=== PATIENT | female | born 1985 | race Caucasian/White ===

== ENCOUNTER 2016-10-05 13:09 | Emergency (ER) | payer SELFPAY ==
[2016-10-05 13:52] VITALS: BP 119/77
--- NOTE | 2016-10-05 15:04 | UC ---
Lower Extremity/Ankle HPI - History of Current Complaint Chief Complaint: UCLowerExtremity Stated Complaint: BILATERAL FOOT PAIN Time Seen by Provider: 10/05/16 14:53 Hx Obtained From: Patient Hx Last Menstrual Period: 09/09/2016 ?: No Onset/Duration: Gradual Onset - got sores on heels now with red streaks heading out to the side., Lasting Weeks - 1, Worse Since - yesterday Severity Initially: Mild Severity Currently: Moderate Aggravating Factor(s): Nothing Alleviating Factor(s): Nothing Able to Bear Weight: Yes - Risk Factors Gout Risk Factors: Negative DVT Risk Factors: Negative Septic Arthritis Risk Factor: Negative - Allergies/Home Medications Allergies/Adverse Reactions: Allergies Allergy/AdvReac Type Severity Reaction Status Date / Time Azithromycin Allergy Severe Difficulty Verified 10/05/16 13:52 [From Zithromax Z-[place]] Swallowing Cefuroxime [From Ceftin] Allergy Intermediate HIVES AND Verified 10/05/16 13:52 FACIAL SWELLING Penicillins Allergy Intermediate Hallucinati Verified 10/05/16 13:52 ons Tramadol [From Ultram] Allergy Intermediate Hives Verified 10/05/16 13:52 Home Medications: Home Medications Amphetamine-Dextroamphetamine [Adderall 30 mg-] 1 tab PO DAILY 10/05/16 [ History Confirmed 10/05/16] PMH/Surg Hx/FS Hx/Imm Hx Endocrine History Of: Denies: Diabetes, Thyroid Disease Cardiovascular History Of: Denies: Cardiac Disorders, Hypertension Respiratory History Of: Denies: COPD, Asthma GI/ History Of: Reports: Gall Bladder Disease - Gallbladder removed 2005 Denies: Ulcer Psychological History Of: Reports: Anxiety, Depression - Surgical History Surgical History: Yes Surgery Procedure, Year, and Place: Gastric by pass 2010. , appendectomy 2009. Gallbladder removed 2005; C-sect 2015 - Family History Known Family History: Positive: Cardiac Disease, Hypertension, Diabetes, Other - postive [facility] for sore throat - Social History Occupation: Employed Full-time Lives: With Family Alcohol Use: None Substance Use Type: None, Prescribed Smoking Status (MU): Light Every Day Tobacco Smoker Type: Cigarettes Amount Used/How Often: 3-4 cigarettes daily Length of Time of Smoking/Using Tobacco: 1 month Have You Smoked in the Last Year: Yes Household Exposure Type: Cigarettes - Immunization History Most Recent Influenza Vaccination: june 2016 Most Recent Tetanus Shot: Unknown Most Recent Pneumonia Vaccination: Not indicated Hx Tetanus, Diphtheria Vaccination: Yes Vaccination Up to Date: Yes Review of Systems Skin: Other - sores on heels with red streaks. All Other Systems Reviewed And Are Negative: Yes Physical Exam Triage Information Reviewed: Yes Appearance: Well-Appearing, No Pain Distress, Well-Nourished Vital Signs: Initial Vital Signs Temp 98.2 F 10/05/16 13:44 Pulse 100 10/05/16 13:44 Resp 18 10/05/16 13:44 BP 119/77 10/05/16 13:44 Pulse Ox 99 10/05/16 13:44 Vital Signs Reviewed: Yes Eyes: Positive: Conjunctiva Clear Neck exam: Normal Respiratory Exam: Normal Cardiovascular Exam: Normal Abdominal Exam: Normal Musculoskeletal Exam: Normal Neurological Exam: Normal Psychological Exam: Normal Skin: Positive: Other - ulcers on both heels with narrow red streaks extending out. Areas are warm. Lower Extremity Course/Dx - Differential Dx/Diagnosis Differential Diagnosis/HQI/PQRI: Cellulitis, Contusion, Phlebitis Provider Diagnoses: Open wound heel bilateral. Cellulitis ankle bilateral Discharge - Discharge Plan Condition: Stable Disposition: HOME Prescriptions: DOXYcycline CAP(*) [DOXYcycline 100MG CAP(*)] 100 mg PO BID #14 cap Patient Education Materials: Cellulitis (ED), Lymphangitis (ED), Doxycycline ( By mouth) Additional Instructions: Please use antibiotic ointment or vaseline over the heel ulcers.
== END 2016-10-05 15:21 | disposition home or self-care (01) ==
LOC: UCCORT 13:09
DX: L97.429 Non-pressure chronic ulcer of left heel and midfoot with unspecified severity (principal); L97.419 Non-pressure chronic ulcer of right heel and midfoot with unspecified severity; L03.116 Cellulitis of left lower limb; L03.115 Cellulitis of right lower limb; F17.210 Nicotine dependence, cigarettes, uncomplicated; Z88.6 Allergy status to analgesic agent; Z88.1 Allergy status to other antibiotic agents; Z88.0 Allergy status to penicillin; Z88.8 Allergy status to other drugs, medicaments and biological substances
CPT/HCPCS: 99212; G0463

== ENCOUNTER 2016-11-09 16:30 | Emergency (ER) | payer SELFPAY ==
[2016-11-09 19:26] VITALS: BP 105/66
--- NOTE | 2016-11-09 21:04 | UC ---
Eye Complaint HPI - HPI Summary HPI Summary: pt p/w bl eye redness, irritation/itching and discharge. no f/c, swelling, pain with eye movement, fb sensation. baby just recovered from pink eye within past week. - History of Current Complaint Chief Complaint: UCEye Stated Complaint: EYE COMPLAINT Time Seen by Provider: 11/09/16 19:18 Hx Obtained From: Patient Hx Last Menstrual Period: 11/06/16 Onset/Duration: Gradual Onset, Lasting Days, Still Present Timing: Constant Severity Initially: Moderate Severity Currently: Moderate Pain Intensity: 2 Pain Scale Used: 0-10 Numeric Location of Injury: Conjunctiva Aggravating Factor(s): Nothing, Contact Lens - pt threw last pair away when sx started Alleviating Factor(s): Nothing Associated Signs And Symptoms: Positive: Drainage (Purulent). Negative: Photophobia, Vision Impairment Bilateral, Fever, Swelling - Risk Factors Penetrating Injury Risk Factor: Negative - Allergies/Home Medications Allergies/Adverse Reactions: Allergies Allergy/AdvReac Type Severity Reaction Status Date / Time Azithromycin Allergy Severe Difficulty Verified 11/09/16 19:26 [From Zithromax Z-[place]] Swallowing Cefuroxime [From Ceftin] Allergy Intermediate HIVES AND Verified 11/09/16 19:26 FACIAL SWELLING Penicillins Allergy Intermediate Hallucinati Verified 11/09/16 19:26 ons Tramadol [From Ultram] Allergy Intermediate Hives Verified 11/09/16 19:26 PMH/Surg Hx/FS Hx/Imm Hx Endocrine History Of: Denies: Diabetes, Thyroid Disease Cardiovascular History Of: Denies: Cardiac Disorders, Hypertension Respiratory History Of: Denies: COPD, Asthma GI/ History Of: Reports: Gall Bladder Disease - Gallbladder removed 2005 Denies: Ulcer Psychological History Of: Reports: Anxiety, Depression - Surgical History Surgical History: Yes Surgery Procedure, Year, and Place: Gastric by pass 2010. , appendectomy 2009. Gallbladder removed 2005; C-sect 2015 - Family History Known Family History: Positive: Unknown, Cardiac Disease, Hypertension, Diabetes , Other - postive [facility] for sore throat - Social History Occupation: Employed Full-time Lives: With Family Alcohol Use: Rare Substance Use Type: None, Prescribed Smoking Status (MU): Light Every Day Tobacco Smoker Type: Cigarettes Amount Used/How Often: 1/2 PPD Length of Time of Smoking/Using Tobacco: 13 YRS Have You Smoked in the Last Year: Yes Household Exposure Type: Cigarettes Cessation Counseling: Patient Advised to Stop - Immunization History Most Recent Influenza Vaccination: june 2016 Most Recent Tetanus Shot: Unknown Most Recent Pneumonia Vaccination: Not indicated Hx Tetanus, Diphtheria Vaccination: Yes Vaccination Up to Date: Yes Review of Systems Constitutional: Negative Skin: Negative Eyes: Drainage, Eye Redness ENT: Negative Respiratory: Negative Neurological: Negative All Other Systems Reviewed And Are Negative: Yes Physical Exam Triage Information Reviewed: Yes Appearance: Well-Appearing, No Pain Distress, Well-Nourished Vital Signs: Initial Vital Signs Temp 98.4 F 11/09/16 19:20 Pulse 93 11/09/16 19:20 Resp 16 11/09/16 19:20 BP 105/66 11/09/16 19:20 Pulse Ox 99 11/09/16 19:20 Vital Signs Reviewed: Yes Eyes: Positive: Conjunctiva Inflamed, Discharge - minimal purulent noted ENT: Positive: Hearing grossly normal, Pharynx normal, TMs normal. Negative: Tonsillar swelling, Tonsillar exudate, Trismus, Muffled/hoarse voice Neck: Positive: Supple, Nontender, No Lymphadenopathy Respiratory: Positive: Lungs clear, Normal breath sounds, No respiratory distress, No accessory muscle use Cardiovascular: Positive: RRR, No Murmur Musculoskeletal Exam: Normal Neurological: Positive: Alert, Muscle Tone Normal Psychological: Positive: Age Appropriate Behavior Skin Exam: Normal Eye Complaint Course/Dx - Differential Dx/Diagnosis Differential Diagnosis/HQI/PQRI: Conjunctivitis, Uveitis - alergies Provider Diagnoses: conjunctivitis Discharge - Discharge Plan Condition: Stable Disposition: HOME Prescriptions: Tobramycin/Dexameth OPTH.SUSP* [Tobradex 0.3-0.1%*] 1 drop BOTH EYES Q4H #1 btl Patient Education Materials: Conjunctivitis (ED) Referrals: Jessica Daniels PA [Primary Care Provider] - If Needed
== END 2016-11-09 20:13 | disposition home or self-care (01) ==
LOC: UCCORT 16:30
DX: H10.33 Unspecified acute conjunctivitis, bilateral (principal); F41.8 Other specified anxiety disorders; Z90.49 Acquired absence of other specified parts of digestive tract; Z98.84 Bariatric surgery status; Z88.1 Allergy status to other antibiotic agents; Z88.5 Allergy status to narcotic agent; Z88.0 Allergy status to penicillin; F17.210 Nicotine dependence, cigarettes, uncomplicated
CPT/HCPCS: 99212; G0463